=== PATIENT | female | born 1990 | race Caucasian/White ===

== ENCOUNTER 2018-06-15 14:36 | Emergency (ER) | payer MEDICAID, SELFPAY ==
[2018-06-15 14:39] VITALS: BP 124/84; PULSE 69; RESP 16; TEMP 37.1; O2SAT 100
[2018-06-15] MEDS: Ibuprofen 600 MG TAB PO (15:31)
[2018-06-15] MEDS: Ondansetron O.D.T. 4 MG TABEF PO (15:31)
[2018-06-15] MEDS: Acetaminophen 500 MG TAB 1000 MG PO (15:31)
[2018-06-15] MEDS: Doxycycline Hyclate 100 MG CAP PO (15:59)
--- NOTE | 2018-06-15 16:16 | W.ED.GENAD ---
Discharge Plan Disposition Patient Disposition: HOME Condition: Improving Discharge Details Chief Complaint: Headache Clinical Impression: Sinusitis Primary Care Provider: Ines Cade ED Provider: Duane Torrez Home Meds and New Rx's Prescriptions: New benzonatate 200 mg capsule 200 mg PO TID PRN (Reason: cough) Qty: 30 RF: 0 doxycycline hyclate 100 mg capsule 100 mg PO BID Qty: 14 RF: 0 Continue norethindrone ac-eth estradiol [Deandra 1.01/06 (21)] 1 EACH tablet 1 tab PO DAILY RF: 0 Discharge Instructions Instructions: Sinusitis (ED) Additional Instructions: Feel free to return to the emergency department for any new or worsening symptoms otherwise stay well-hydrated and get plenty of rest during illness. Follow-up with your primary care provider as needed for reassessment or if not improving by the end of the antibiotic therapy. Stand Alone Forms: Work Release Referrals: Ines Cade [Primary Care Provider] - (As needed for reassessment) Discharge Data Discharge Date/Time-TO BE ENTERED AT DEPARTURE: 06/15/18 16:32 Medical Decision Making Patient presenting to the emergency department for chief complaint of headache and cold symptoms. She states that for the past couple weeks she has had the symptoms and they have been persistent. She states over the past couple nights she has had some subjective chills and fever along with worsening facial pain. Patient does state single episode of vomiting but attributes this due to emotional stress as her children are involved in a DCF case. Physical exam is unremarkable except for maxillary and ethmoid sinus tenderness otherwise lungs are clear, TMs are normal, no significant lymphadenopathy patient is nontoxic in appearance. Feel that patient more likely had a upper respiratory tract infection that is now turned to sinusitis given duration of symptoms and subjective fever and chills. Patient placed upon doxycycline for sinusitis and Tessalon Perles for cough. patient encouraged to return for any new or worsening symptoms otherwise to follow-up with primary care. After discussion of diagnosis and plan of care patient has no further needs, questions, or concerns and states clear understanding to return to the emergency department for any worsening symptoms. HPI General Mode of arrival: ambulatory. Date/Time Provider Initiated Documentation: 06/15/18 14:44. Limitations to Documentation: no limitations. Information obtained by: patient and RN notes reviewed. History of Present Illness 28 year old F presents to the emergency department with the chief complaint of headache, cold symptoms, described as moderate, with intensity rated at 8. Quality is described as aching, and is localized to the head and face. Patient started experiencing this week(s) (2) and it has been constant. No relieving factors improve symptom(s), Patient did receive the following treatments prior to arrival, none Related Data Home Medications Medication Instructions Recorded Confirmed norethindrone ac-eth estradiol 1 tab PO DAILY 02/19/18 06/15/18 [Deandra 1.5/30 (21)] benzonatate 200 mg PO TID PRN #30 cap 06/15/18 doxycycline hyclate 100 mg PO BID #14 cap 06/15/18 Previous Rx's Medication Instructions Recorded benzonatate 200 mg PO TID PRN #30 cap 06/15/18 doxycycline hyclate 100 mg PO BID #14 cap 06/15/18 Allergies Allergy/AdvReac Type Severity Reaction Status Date / Time No Known Allergies Allergy Unverified 06/15/18 14:43 General Stated Complaint: Headache EVANGELISTA: 2 Review of Systems Constitutional Reports chills, Reports fatigue, Reports fever(s), Reports headache(s), Reports malaise and Reports night sweats Eyes Denies eye discharge ENT Reports otalgia, Reports headache(s), Reports nasal congestion, Reports sinus pain, Reports sinus pressure, Reports sore throat, Denies throat swelling and Denies tongue swelling Cardiovascular Denies chest pain Respiratory Denies chest congestion and Reports cough Gastrointestinal Denies abdominal pain, Denies diarrhea, Denies nausea and Reports vomiting Integumentary/Breasts Reports rash Neurologic Reports headache(s) Endocrine Reports fatigue Allergic/Immunologic Denies throat swelling and Denies tongue swelling [facility] Social History Smoking/Tobacco Use Status: Never Exam Const General: cooperative, comfortable and no acute distress Orientation: alert and awake [facility] Head: normal to inspection, normocephalic and atraumatic Ears: hearing grossly normal bilaterally and TM's normal bilaterally General nose exam: external nose normal Face and sinus: no erythema and sinus tenderness ethmoid and maxillary Mouth: oral mucosae normal, no drooling, no muffled voice and no trismus Throat: posterior oropharynx normal, tonsils normal and uvula midline Neck Neck: normal visual inspection, full ROM, no lymphadenopathy, no meningeal signs, trachea midline and supple Resp Effort & Inspection: normal respiratory effort, able to speak in complete sentences and cough Quality of cough: dry Auscultation: clear to auscultation bilaterally Cardio Rate: regular rate Rhythm: regular rhythm Heart Sounds: S1 normal, S2 normal, normal S1 and S2, no click, no gallops, no murmurs and no rubs Skin General skin exam: no rashes or lesions noted and dry skin (warm) Neuro General: alert, awake, oriented x3, gait normal, moves all extremities and CN's II-XI intact bilaterally Cognition: normal cognition Speech: speech normal Course Vital Signs Temperature 37.1 C 06/15/18 14:39 Pulse 69 06/15/18 14:39 Respiratory Rate 16 06/15/18 14:39 Blood Pressure 124/84 06/15/18 14:39 Pulse Oximetry 100 06/15/18 14:39 Temperature 37.1 C 06/15/18 14:39 Temperature Source Temporal Artery Scan 06/15/18 14:39 Pulse 69 06/15/18 14:39 Respiratory Rate 16 06/15/18 14:39 Respiratory Effort Non-Labored 06/15/18 14:41 Blood Pressure 124/84 06/15/18 14:39 Blood Pressure Position Sitting 06/15/18 14:39 Pulse Oximetry 100 06/15/18 14:39 Oxygen Delivery Method Room Air 06/15/18 14:39 Oxygen Flow Rate 0 06/15/18 14:39 Pain Level 8 06/15/18 14:41 Lab/Test Results Lab/Test Results: POC- Test(urine) Negative
--- NOTE | 2018-06-15 16:19 | ED.GENADUL_ITS ---
Discharge Plan Disposition Patient Disposition: HOME Condition: Improving Discharge Details Chief Complaint: Headache Clinical Impression: Sinusitis Primary Care Provider: Ines Cade ED Provider: Duane Torrez Home Meds and New Rx's Prescriptions: New benzonatate 200 mg capsule 200 mg PO TID PRN (Reason: cough) Qty: 30 RF: 0 doxycycline hyclate 100 mg capsule 100 mg PO BID Qty: 14 RF: 0 Continue norethindrone ac-eth estradiol [Deandra 1.01/06 (21)] 1 EACH tablet 1 tab PO DAILY RF: 0 Discharge Instructions Instructions: Sinusitis (ED) Additional Instructions: Feel free to return to the emergency department for any new or worsening symptoms otherwise stay well-hydrated and get plenty of rest during illness. Follow-up with your primary care provider as needed for reassessment or if not improving by the end of the antibiotic therapy. Stand Alone Forms: Work Release Referrals: Ines Cade [Primary Care Provider] - (As needed for reassessment) Discharge Data Discharge Date/Time-TO BE ENTERED AT DEPARTURE: 06/15/18 16:32 Medical Decision Making Patient presenting to the emergency department for chief complaint of headache and cold symptoms. She states that for the past couple weeks she has had the symptoms and they have been persistent. She states over the past couple nights she has had some subjective chills and fever along with worsening facial pain. Patient does state single episode of vomiting but attributes this due to emotional stress as her children are involved in a DCF case. Physical exam is unremarkable except for maxillary and ethmoid sinus tenderness otherwise lungs are clear, TMs are normal, no significant lymphadenopathy patient is nontoxic in appearance. Feel that patient more likely had a upper respiratory tract infection that is now turned to sinusitis given duration of symptoms and subjective fever and chills. Patient placed upon doxycycline for sinusitis and Tessalon Perles for cough. patient encouraged to return for any new or worsening symptoms otherwise to follow-up with primary care. After discussion of diagnosis and plan of care patient has no further needs, questions, or concerns and states clear understanding to return to the emergency department for any worsening symptoms. HPI General Mode of arrival: ambulatory . Date/Time Provider Initiated Documentation: 06/15/18 14:44 . Limitations to Documentation: no limitations . Information obtained by: patient and RN notes reviewed . History of Present Illness 28 year old F presents to the emergency department with the chief complaint of headache, cold symptoms, described as moderate, with intensity rated at 8. Quality is described as aching, and is localized to the head and face. Patient started experiencing this week(s) (2) and it has been constant. No relieving factors improve symptom(s), Patient did receive the following treatments prior to arrival, none Related Data Home Medications Medication Instructions Recorded Confirmed norethindrone ac-eth estradiol 1 tab PO DAILY 02/19/18 06/15/18 [Deandra 1.5/30 (21)] benzonatate 200 mg PO TID PRN #30 cap 06/15/18 doxycycline hyclate 100 mg PO BID #14 cap 06/15/18 Previous Rx's Medication Instructions Recorded benzonatate 200 mg PO TID PRN #30 cap 06/15/18 doxycycline hyclate 100 mg PO BID #14 cap 06/15/18 Allergies Allergy/AdvReac Type Severity Reaction Status Date / Time No Known Allergies Allergy Unverified 06/15/18 14:43 General Stated Complaint: Headache EVANGELISTA: 2 Review of Systems Constitutional Reports chills, Reports fatigue, Reports fever(s), Reports headache(s), Reports malaise and Reports night sweats Eyes Denies eye discharge ENT Reports otalgia, Reports headache(s), Reports nasal congestion, Reports sinus pain, Reports sinus pressure, Reports sore throat, Denies throat swelling and Denies tongue swelling Cardiovascular Denies chest pain Respiratory Denies chest congestion and Reports cough Gastrointestinal Denies abdominal pain, Denies diarrhea, Denies nausea and Reports vomiting Integumentary/Breasts Reports rash Neurologic Reports headache(s) Endocrine Reports fatigue Allergic/Immunologic Denies throat swelling and Denies tongue swelling [facility] Social History Smoking/Tobacco Use Status: Never Exam Const General: cooperative, comfortable and no acute distress Orientation: alert and awake [facility] Head: normal to inspection, normocephalic and atraumatic Ears: hearing grossly normal bilaterally and TM's normal bilaterally General nose exam: external nose normal Face and sinus: no erythema and sinus tenderness ethmoid and maxillary Mouth: oral mucosae normal, no drooling, no muffled voice and no trismus Throat: posterior oropharynx normal, tonsils normal and uvula midline Neck Neck: normal visual inspection, full ROM, no lymphadenopathy, no meningeal signs , trachea midline and supple Resp Effort & Inspection: normal respiratory effort, able to speak in complete sentences and cough Quality of cough: dry Auscultation: clear to auscultation bilaterally Cardio Rate: regular rate Rhythm: regular rhythm Heart Sounds: S1 normal, S2 normal, normal S1 and S2, no click, no gallops, no murmurs and no rubs Skin General skin exam: no rashes or lesions noted and dry skin (warm) Neuro General: alert, awake, oriented x3, gait normal, moves all extremities and CN's II-XI intact bilaterally Cognition: normal cognition Speech: speech normal Course Vital Signs Temperature 37.1 C 06/15/18 14:39 Pulse 69 06/15/18 14:39 Respiratory Rate 16 06/15/18 14:39 Blood Pressure 124/84 06/15/18 14:39 Pulse Oximetry 100 06/15/18 14:39 Temperature 37.1 C 06/15/18 14:39 Temperature Source Temporal Artery Scan 06/15/18 14:39 Pulse 69 06/15/18 14:39 Respiratory Rate 16 06/15/18 14:39 Respiratory Effort Non-Labored 06/15/18 14:41 Blood Pressure 124/84 06/15/18 14:39 Blood Pressure Position Sitting 06/15/18 14:39 Pulse Oximetry 100 06/15/18 14:39 Oxygen Delivery Method Room Air 06/15/18 14:39 Oxygen Flow Rate 0 06/15/18 14:39 Pain Level 8 06/15/18 14:41 Lab/Test Results Lab/Test Results: POC- Test(urine) Negative
[2018-06-15 16:30] VITALS: BP 113/80; PULSE 64; RESP 16; TEMP 36.6; O2SAT 99
== END 2018-06-15 16:32 | disposition home or self-care (01) ==
LOC: ER 16:47
PROVIDERS: Emergency Provider Nurse Practitioner Family; PCP Nurse Practitioner Family
DX: J01.90 Acute sinusitis, unspecified (principal); F43.8 Other reactions to severe stress
CPT/HCPCS: 99283

== ENCOUNTER 2019-05-04 14:35 | Emergency (ER) | payer MEDICAID, SELFPAY ==
[2019-05-04 14:52] VITALS: BP 101/65; PULSE 60; RESP 16; TEMP 36.8; O2SAT 100
--- NOTE | 2019-05-04 14:55 | ED.GENADUL_ITS ---
Discharge Plan Disposition Patient Disposition: HOME Condition: Good Discharge Details Chief Complaint: Cellulitis Clinical Impression: Cat scratch, Ecchymosis Primary Care Provider: Ines Cade ED Provider: Karla Call Home Meds and New Rx's Prescriptions: Continued norethindrone ac-eth estradiol [Deandra 1.01/06 (21)] 1 EACH tablet 1 tab PO DAILY RF: 0 Discharge Instructions Instructions: Abrasion (ED) Additional Instructions: Encourage rest, ice, elevation. Tylenol and/or ibuprofen as needed for discomfort. At this point, there is no evidence of infection. The discoloration is more consistent with bruising. Please follow-up with primary care next week if not improved. If you note redness, warmth, drainage, increased pain or other new/worsening symptoms please seek care urgently once again. Referrals: Ines Cade [Primary Care Provider] - Discharge Data Discharge Date/Time-TO BE ENTERED AT DEPARTURE: 05/04/19 15:35 Medical Decision Making Patient is a 28-year-old right-hand dominant female presents today with chief complaint right hand puncture wound. She reports that 3 days ago she was scratched by her cat. She reports cat is up-to-date on immunizations. Several small puncture wound to the dorsum of the right hand. Immediately noted swelling which subsequently dissipated. However, since the initial incident patient has noted ecchymosis. Was concerned that coworkers that this appeared cellulitic. However, on exam, the area directly around the puncture wound is more yellowed and further on the ulnar side, there is ecchymosis. No erythema, no warmth, no discharge. Minimal discomfort. Good range of motion, full extension against resistance of all of the digits without any discomfort. Patient is afebrile and nontoxic-appearing. Do not think she has cellulitis this time, findings are more consistent with ecchymosis. Encourage rest, ice, elevation. Advised Tylenol and ibuprofen as needed for discomfort. Advise close follow-up with primary care. She is given strict return precautions. Lumbar questions and concerns were addressed and she is in agreement this plan. HPI General Mode of arrival: ambulatory . Date/Time Provider Initiated Documentation: 05/04/19 14:55 . Limitations to Documentation: no limitations . Information obtained by: patient and RN notes reviewed . History of Present Illness 28 year old F presents to the emergency department with the chief complaint of cat scratch right hand, described as moderate, Quality is described as aching, and is localized to the right and upper extremity. Patient reports no radiation. Patient started experiencing this day(s) (3-4) and it has been constant. No relieving factors improve symptom(s), No exacerbating factors reported . Patient notes rash (ecchymosis); denies diaphoresis, fever/chills and shortness of breath. Patient did receive the following treatments prior to arrival, none Related Data Home Medications Medication Instructions Recorded Confirmed norethindrone ac-eth estradiol 1 tab PO DAILY 02/19/18 06/15/18 [Deandra 1.5/30 (21)] Allergies Allergy/AdvReac Type Severity Reaction Status Date / Time No Known Allergies Allergy Unverified 06/15/18 14:43 General Stated Complaint: Cellulitis EVANGELISTA: 3 Review of Systems Constitutional Constitutional: Reports as per HPI, Denies chills and Denies fever(s) Musculoskeletal Musculoskeletal: Reports as per HPI Integumentary/Breasts Skin/Breast: Reports as per HPI Neurologic Neurologic: Reports as per HPI, Denies sensory deficit and Denies paresthesias [facility] Social History Smoking/Tobacco Use Status: Never Drug use: Never Do you feel safe in your relationship?: Yes Exam Const General: cooperative, healthy appearing, comfortable, no acute distress and well developed Nutritional Appearance: average body habitus and well nourished Orientation: alert and awake Resp Effort & Inspection: normal respiratory effort, able to speak in complete sentences and no respiratory distress Cardio Rate: regular rate Rhythm: regular rhythm Skin General skin exam: ecchymosis (ulnar side, dorsal hand), no erythema, no fluctuance, no hypertrophy, no induration, no petechiae and no purpura Trauma: puncture (dorsum of right hand) Neuro General: alert and awake Cognition: normal cognition Speech: speech normal Gait: normal gait Sensory Exam: no sensory deficits noted Extrem Right upper extremity: full ROM, normal capillary refill, no joint enlargement, wrist Details: normal to inspection and normal ROM; no tenderness and no swelling and hand Details: abnormal to inspection (ecchymosis), normal capillary refill, neuromotor exam normal, neurosensory exam normal, tendon exam normal, tenderness Location: of the dorsal hand Location: of the ulnar aspect, vascular exam Details: radial pulse present, ulnar pulse present and normal capillary refill, normal ROM of fingers, no swelling and ecchymosis Location: of the dorsal hand; no unusual warmth, no abrasions and no lacerations; abnormal to inspection (ecchymosis drawn below) and no edema Hand/finger images: 1. area of ecchymosis. No warmth, erythema, discharge, swelling Psych Appearance: grossly normal and well kempt Mental Status: mental status grossly normal Speech and Movement: speech and movement normal Course Vital Signs Vital signs: Vital Signs Temperature 36.8 C 05/04/19 14:52 Pulse 60 05/04/19 14:52 Respiratory Rate 16 05/04/19 14:52 Blood Pressure 101/65 05/04/19 14:52 Pulse Oximetry 100 05/04/19 14:52 Temperature 36.8 C 05/04/19 14:52 Temperature Source Tympanic 05/04/19 14:52 Pulse 60 05/04/19 14:52 Respiratory Rate 16 05/04/19 14:52 Blood Pressure 101/65 05/04/19 14:52 Pulse Oximetry 100 05/04/19 14:52 Oxygen Delivery Method Room Air 05/04/19 14:52 Oxygen Flow Rate 0 05/04/19 14:52
== END 2019-05-04 15:35 | disposition home or self-care (01) ==
PROVIDERS: Emergency Provider Physician Assistant; PCP Nurse Practitioner Family
DX: S61.431A Puncture wound without foreign body of right hand, initial encounter (principal); W55.03XA Scratched by cat, initial encounter
CPT/HCPCS: 99283

== ENCOUNTER 2020-07-17 15:22 | Outpatient (REF) | payer MEDICAID, SELFPAY ==
[2020-07-20 15:56] LABS: COVID-19 RT-PCR Result NEGATIVE (Negative)
== END 2020-07-17 15:42 ==
LOC: NCHCN 15:22
PROVIDERS: PCP Nurse Practitioner Family; Visit Provider Nurse Practitioner Family
DX: R05 Cough (principal)
CPT/HCPCS: U0003